=== PATIENT | female | born 1965 | race Caucasian/White ===

== ENCOUNTER → 2021-02-21 | Outpatient (CLI) | payer OTHER | LOC: M.RAD 10:16 | PROVIDERS: ATTEND Family Medicine | DX: Z12.31 Encounter for screening mammogram for malignant neoplasm of breast (principal) ==

== ENCOUNTER → 2021-02-24 | Outpatient (CLI) | payer OTHER | LOC: M.ULTRA 08:49 | PROVIDERS: ATTEND Family Medicine | DX: N63.20 Unspecified lump in the left breast, unspecified quadrant (principal) ==

== ENCOUNTER → 2021-02-28 | Outpatient (CLI) | payer OTHER ==
--- NOTE | 2021-03-01 16:06 | PATH ---
[place] [address] PATHOLOGY RPT PROCEDURE Name: MARIANNA HOFFMANN Room: [facility] JEAN Barrett#: [id number] Admission: 02/28/21 Date of : 61 Discharge: Report #: [id number] Path Case #: [id number] [facility] Accession Number: [id number] . 01 Material submitted: . breast - LEFT BREAST SUBAREOLAR. Modifiers: left, SUBAREOLAR . 01 Clinical history: . 0.61 X 0.51 X 0.51 CM SUBAREOLAR . 02 Diagnosis: Left breast, subareolar, image guided core biopsies: - Benign breast tissue with mostly collapsed cyst, usual ductal epithelial hyperplasia and mild chronic inflammation, negative for atypia. See comment. LBQ 03/01/2021 1159 Local . 02 Comment: Reviewed with Dr. Gordo Sanchez who agrees with the diagnosis on 03/01/2021. ([facility]/db; 03/01/2021) . 02 Electronically signed: . Elmo Khalil MD, Pathologist NPI- [id number] . 01 Gross description: . The specimen is received in formalin, labeled "Marianna Hoffmann, left breast subareolar 0935" and consists of multiple soft price-yellow tissue cores measuring up to 2.5 cm x 0.2 cm. The specimen is entirely submitted A1-A3. The specimen is removed from the patient at 0935 hours and placed in formalin at 0936 hours on Sunday, February 28, 2021. The specimen is removed from formalin at 11:30pm. The specimen is in formalin for greater than 6 hours and less than 72 hours. ([facility]; 02/28/2021) MUINR/MUNIR 02/28/20211952 Local . 02 Pathologist provided ICD-10: N60.02, N62, N61.0 . 02 CPT . 028584 Specimen Comment: A courtesy copy of this report has been sent to [phone], [phone] Specimen Comment: [phone], Specimen Comment: Report sent to / DR VALENTINO / [place] [address] PATHOLOGY RPT PROCEDURE Name: MARIANNA HOFFMANN Room: [facility]#: [id number] Admission: 02/28/21 Date of : 61 Discharge: Report #: [id number] Path Case #: [id number] Specimen Comment: A duplicate report has been generated due to demographic updates. Performed at: 01 [facility] [place] [address] [facility] [address], [place], [place] [id number] MD Gordo Sanchez MD Phone: [phone] Performed at: 02 [facility] [address], [place], [place] [id number] MD Elmo Khalil MD Phone: [phone]
== END | disposition home or self-care (01) ==
LOC: M.ULTRA 08:16
PROVIDERS: ATTEND Family Medicine
DX: N60.02 Solitary cyst of left breast (principal); N62 Hypertrophy of breast; N61.0 Mastitis without abscess; R92.1 Mammographic calcification found on diagnostic imaging of breast

== ENCOUNTER → 2022-01-15 | Outpatient (CLI) | payer OTHER | LOC: M.CT 08:57 | PROVIDERS: ATTEND Internal Medicine Cardiovascular Disease | DX: Z13.6 Encounter for screening for cardiovascular disorders (principal) ==